=== PATIENT | female | born 2000 | race Caucasian/White ===

== ENCOUNTER 2024-03-10 18:59 | Emergency (ER) | payer OTHER ==
[~2024-03-10] VITALS: Ht 154.9 cm; Wt 68.6 kg
[2024-03-10 19:21] VITALS: BP 116/77; TEMP 98.6
[2024-03-10] MEDS ORDERED: Albuterol/Ipratropium 3 MG-0.5 MG/3 ML Neb Soln IH ONE (21:15)
[2024-03-10] MEDS ORDERED: predniSONE 20 MG TAB PO ONE (21:15)
[2024-03-10] MEDS ORDERED: Albuterol 90 MCG/PUFF 8 GM MDI IH ONE (22:30)
[2024-03-10] MEDS ORDERED: PREDNISONE20 MG PO (22:31)
[2024-03-10 22:53] VITALS: PULSE 80
== END 2024-03-10 22:54 | disposition home or self-care (01) ==
LOC: COL.ER 18:59
DX: J40 Bronchitis, not specified as acute or chronic (principal); F17.200 Nicotine dependence, unspecified, uncomplicated
CPT/HCPCS: J7512